=== PATIENT | male | born 1945 | race Caucasian/White ===

== ENCOUNTER 2016-09-07 10:27 | Emergency (ER) | payer MEDICARE, OTHER ==
[2016-09-07] MEDS ORDERED: BENZONATATE 100 MG CAPSULE PO STA (11:03)
--- NOTE | 2016-09-07 11:05 | ED Physician Documentation ---
History of Present Illness - Stated complaint Stated Complaint: CONGESTED/FEVER - Chief complaint Chief Complaint: General - Additonal information Additional information: hx from pt 70 male travelling from [facility] cough and congestion aiden at night no CP no SOA no unilateral or bilateral LE edema hx bronchitis non smoker no asthma or COPD Review of Systems Constitutional: denies: Fever, Chills Cardiac: denies: Chest pain / pressure Respiratory: reports: Cough. denies: Dyspnea Musculoskeletal: denies: Extremity pain, Extremity swelling Endocrine: denies: Easy bruising / bleeding Immunocompromised: denies: Immunocompromised PD PAST MEDICAL HISTORY - Past Medical History Past Medical History: Yes Cardiovascular: Arrhythmia - Present Medications Home Medications: Ambulatory Orders Medication Instructions Recorded Confirmed Benzonatate [Tessalon] 100 mg PO TID PRN #20 capsule 09/07/16 Latanoprost 0.005% Ophth Drops 1 drops PO BID 09/07/16 09/07/16 [Xalatan Ophth Drops] Metoprolol Succinate [Toprol Xl] 0 mg PO BID 09/07/16 09/07/16 Pantoprazole Sodium 40 mg PO PRN 09/07/16 09/07/16 guaiFENesin/CODEINE [Robitussin AC] 5 - 10 ml PO Q6H PRN #120 udc 09/07/16 - Allergies Allergies/Adverse Reactions: Allergies Allergy/AdvReac Type Severity Reaction Status Date / Time No Known Drug Allergies Allergy Verified 09/07/16 10:45 - Social History Does the pt smoke?: No Smoking Status: Never smoker Does the pt drink ETOH?: No Does the pt have substance abuse?: No - Immunizations Immunizations are current?: No - POLST Patient has POLST: No PD ED PE NORMAL - Vitals Vital signs reviewed: Yes - Neck Neck: Supple, no meningeal sign - Cardiac Cardiac: RRR - Respiratory Respiratory: No respiratory distress, Other (dec L base) - Derm Derm: Normal color - Extremities Extremities: No tenderness to palpate, Normal ROM s pain, No edema, No calf tenderness / cord - Neuro Neuro: Alert and oriented X 3 Results - Vitals Vitals: Vital Signs - 24 hr 09/07/16 10:35 Temperature 35.4 C L Heart Rate 68 Respiratory 14 Rate Blood Pressure 133/78 H O2 Saturation 100 Oxygen O2 Source Room air - Rads (name of study) CXR Radiology: See rad report (no pna, increased interstitial markings are non specific but can be seen with RAD, bronchitis, and viral infection) PD MEDICAL DECISION MAKING - ED course ED course: no tachycardia tachypnea hypoxia or LE edema to suggest DVT PE, and no SOA or having CP Departure - Departure Disposition: 01 Home, Self Care Clinical Impression: Bronchitis Condition: Good Instructions: ED URI Viral Prescriptions: guaiFENesin/CODEINE [Robitussin AC] 5 - 10 ml PO Q6H PRN #120 udc PRN Reason: Cough Benzonatate [Tessalon] 100 mg PO TID PRN #20 capsule PRN Reason: to ease cough Comments: The xray does not show any pneumonia It seems you have a viral bronchitis That does not make you any less sick than if you had pneumonia, but it does mean antibiotics will not help I did write prescriptions for some medications to ease your cough so everyone can get some sleep. If your symptoms worsen you should get rechecked - once a person gets run down with bronchitis, a secondary pneumonia can sometimes later develop, so worsening symptoms would merit another chest xray Also please follow up with your PMD about your blood pressure - it was high today
[2016-09-07] MEDS ORDERED: BENZONATATE 100 MG CAPSULE PO ONE (11:06)
--- NOTE | 2016-09-07 11:26 | XRAY Preliminary Report ---
Exam: XR Chest 2 View PA/LAT IMPRESSION: 1. No focal consolidation. 2. Increased interstitial markings with parabronchial cuffing are nonspecific but can be seen in sett ing of reactive airways disease, bronchitis and viral infection. [facility] SITE ID: [id number]
--- NOTE | 2016-09-07 11:29 | XRAY Report ---
EXAM: CHEST RADIOGRAPHY EXAM DATE: 09/07/2016 11:18 AM. CLINICAL HISTORY: Cough, dec L base. COMPARISON: None. TECHNIQUE: 2 views. FINDINGS: Lungs/Pleura: Increased interstitial markings with peribronchial cuffing. Mediastinum: Heart and mediastinal contours are unremarkable. Other: None. IMPRESSION: 1. No focal consolidation. 2. Increased interstitial markings with parabronchial cuffing are nonspecific but can be seen in sett ing of reactive airways disease, bronchitis and viral infection. [facility] Referring Provider Line: [phone] SITE ID: [id number]
[2016-09-07 12:07] VITALS: BP 107/53
== END 2016-09-07 12:08 | disposition home or self-care (01) ==
LOC: ED 10:27
DX: J40 Bronchitis, not specified as acute or chronic (principal); R03.0 Elevated blood-pressure reading, without diagnosis of hypertension
CPT/HCPCS: 71020; 99283; A9270

== ENCOUNTER 2016-09-12 09:57 | Emergency (ER) | payer MEDICARE, OTHER ==
[2016-09-12 10:02] VITALS: BP 152/88
--- NOTE | 2016-09-12 10:27 | ED Physician Documentation ---
PD HPI URI - Stated complaint Stated Complaint: CONGESTION/UNABLE TO SLEEP - Chief complaint Chief Complaint: Resp - History obtained from History obtained from: Patient - History of Present Illness Timing - onset: How many days ago (7-8) Timing duration: Days (7-8) Timing details: Gradual onset, Still present Associated symptoms: Fever (initially but not the past few days), Nasal congestion, Productive cough (clear to white), Dyspnea, Other (trouble sleeping due to cough, persistent). No: Hemoptysis, Chest pain Contributing factors: Travel (couple weeks ago, in their [place] from [facility] and staying with family on [place] No: Sick contact, Immunocompromised Improves by: No: Medication (given Tessalon and Robitussin AC 5 days ago, which has not helped much with cough, mostly at night.) Worsened by: Activity, Position (lying down for sleep, gets coughing "fits") Recently seen: Emergency Dept (5 days ago.) Review of Systems Constitutional: denies: Myalgias Nose: reports: Congestion. denies: Rhinorrhea / runny nose Throat: reports: Sore throat (mild) Cardiac: denies: Chest pain / pressure Respiratory: reports: Dyspnea, Cough. denies: Wheezing GI: denies: Vomiting, Diarrhea Musculoskeletal: denies: Extremity swelling Neurologic: reports: Generalized weakness. denies: Near syncope, Altered mental status, Headache PD PAST MEDICAL HISTORY - Past Medical History Cardiovascular: Arrhythmia GI: Ulcers - Past Surgical History Past Surgical History: Yes General: Cholecystectomy - Present Medications Home Medications: Ambulatory Orders Medication Instructions Recorded Confirmed Benzonatate [Tessalon] 100 mg PO TID PRN #20 capsule 09/07/16 09/12/16 Latanoprost 0.005% Ophth Drops 1 drops PO BID 09/07/16 09/12/16 [Xalatan Ophth Drops] Metoprolol Succinate [Toprol Xl] 0 mg PO BID 09/07/16 09/12/16 Pantoprazole Sodium 40 mg PO PRN 09/07/16 09/12/16 guaiFENesin/CODEINE [Robitussin AC] 5 - 10 ml PO Q6H PRN #120 udc 09/07/1609/12 Albuterol Sulfate [Proair Hfa 2 puffs IH QID #1 hfa.aer.ad 09/12/16 Inhaler] Amoxicillin 500 mg PO TID #15 capsule 09/12/16 Dexamethasone [Decadron] 4 mg PO DAILY #5 tablet 09/12/16 - Allergies Allergies/Adverse Reactions: Allergies Allergy/AdvReac Type Severity Reaction Status Date / Time No Known Drug Allergies Allergy Verified 09/12/16 10:02 - Social History Does the pt smoke?: No Smoking Status: Never smoker Does the pt drink ETOH?: No ETOH Use: Wine Does the pt have substance abuse?: No - Immunizations Immunizations are current?: No Immunizations: TDAP >10years/unknown - POLST Patient has POLST: No PD ED PE NORMAL - Vitals Vital signs reviewed: Yes - General General: Alert and oriented X 3, No acute distress, Well developed/nourished - HEENT HEENT: Ears normal, Pharynx benign - Neck Neck: Supple, no meningeal sign, No adenopathy - Cardiac Cardiac: RRR, No murmur - Respiratory Respiratory: Clear bilaterally - Derm Derm: Normal color, Warm and dry - Extremities Extremities: Normal ROM s pain, No edema, No calf tenderness / cord - Neuro Neuro: Alert and oriented X 3, No motor deficit, Normal speech Results - Vitals Vitals: Vital Signs - 24 hr 09/12/16 10:01 Temperature 36.9 C Heart Rate 56 L Respiratory 18 Rate Blood Pressure 152/88 H O2 Saturation 99 Oxygen O2 Source Room air PD MEDICAL DECISION MAKING - ED course Complexity details: reviewed old records, considered differential, d/w patient Departure - Departure Disposition: 01 Home, Self Care Clinical Impression: Upper respiratory tract infection Qualifiers: URI type: unspecified URI Qualified Code(s): J06.9 - Acute upper respiratory infection, unspecified Condition: Stable Record reviewed to determine appropriate education?: Yes Prescriptions: Amoxicillin 500 mg PO TID #15 capsule Dexamethasone [Decadron] 4 mg PO DAILY #5 tablet Albuterol Sulfate [Proair Hfa Inhaler] 2 puffs IH QID #1 hfa.aer.ad Comments: Drink lots of fluids. Use Albuterol inhaler 2 puffs 4 times daily and about 1/2 hour before bed/exercise to help with breathing/cough. Decadron steroid for 5 more days. This is likely to be viral, but can try Amoxicillin antibiotic as part of the mix. Continue cough medicine as needed. Warm honey/tea is also good for cough before bed. Recheck if not improved over the next few days.
[2016-09-12] MEDS ORDERED: DEXAMETHASONE 10 MG/ML VIAL PO STA (10:39)
[2016-09-12] MEDS ORDERED: DEXAMETHASONE 10 MG/ML VIAL ONE (10:43)
[2016-09-12] MEDS ORDERED: CHERRY SYRUP 10 ML UDC PO ONE (10:43)
== END 2016-09-12 10:57 | disposition home or self-care (01) ==
LOC: ED 09:57
DX: J06.9 Acute upper respiratory infection, unspecified (principal); Z87.11 Personal history of peptic ulcer disease
CPT/HCPCS: 99283; A9270